=== PATIENT | female | born 1990 ===

== ENCOUNTER 2017-01-21 19:11 | Emergency (ER) | payer OTHER ==
[2017-01-21 19:20] VITALS: BP 146/92; PULSE 81; RESP 18; TEMP 98.4; O2SAT 100
--- NOTE | 2017-01-21 20:17 | ED PDOC ---
Lower Extremity Pain/Injury Time Seen by Provider: 01/21/17 19:56 Chief Complaint (Nursing): Lower Extremity Problem/Injury Chief Complaint (Provider): Left calf pain History Per: Patient History/Exam Limitations: no limitations Onset/Duration Of Symptoms: Days (x 2) Current Symptoms Are (Timing): Still Present Additional Complaint(s): Melly is a 26 y/o female who was sent by PMD to the ED for evaluation of left calf pain, onset 2 days ago. She denies any associated chest pain or shortness of breath. Patient also denies any recent travel or long car/plane ride, stating that she was home resting all weekend. No medications were taken for pain relief. She reports she was recently diagnosed with tonsillitis and is currently taking a course of Amoxicillin. Patient states she takes control pills daily. She denies being a smoker. PMD: Dr. Greg Castellanos Past Medical History Reviewed: Historical Data, Nursing Documentation, Vital Signs Vital Signs: Last Vital Signs Temp 98.4 F 01/21/17 19:17 Pulse 81 01/21/17 19:17 Resp 18 01/21/17 19:17 BP 146/92 H 01/21/17 19:17 Pulse Ox 100 01/21/17 19:17 - Medical History PMH: No Chronic Diseases - Surgical History Other surgeries: right hip surgery - Family History Family History: States: CAD, Hypertension - Living Arrangements Living Arrangements: With Family - Social History Current smoker - smoking cessation education provided: No Alcohol: None Drugs: Denies - Allergies Allergies/Adverse Reactions: Allergies Allergy/AdvReac Type Severity Reaction Status Date / Time Sulfa (Sulfonamide Allergy RASH Verified 01/21/17 19:17 Antibiotics) Wells Criteria for PE - Wells Criteria for Pulmonary Embolism Clinical Signs and Symptoms of DVT: Yes P.E is #1 Diagnosis, or Equally Likely: No Heart Rate >100: No Immobilization at least 3 days;Surgery previous 4 weeks: No Previous, objectively diagnosed PE or DVT: No Hemoptysis: No Malignancy w/treatment within 6 months, or palliative: No Total Score: 3 Review of Systems ROS Statement: Except As Marked, All Systems Reviewed And Found Negative Constitutional: Negative for: Fever Cardiovascular: Negative for: Chest Pain Respiratory: Negative for: Shortness of Breath, SOB with Exertion Musculoskeletal: Positive for: Leg Pain (Left calf pain, x 2 days, denies any trauma or injury) Physical Exam - Reviewed Nursing Documentation Reviewed: Yes Vital Signs Reviewed: Yes - Physical Exam Appears: Positive for: Well, Non-toxic, No Acute Distress Head Exam: Positive for: ATRAUMATIC, NORMAL INSPECTION, NORMOCEPHALIC Skin: Positive for: Normal Color. Negative for: Rash Eye Exam: Positive for: Normal appearance Cardiovascular/Chest: Positive for: Regular Rate, Rhythm Respiratory: Positive for: Normal Breath Sounds. Negative for: Accessory Muscle Use, Wheezing, Respiratory Distress Extremity: Positive for: Normal ROM, Calf Tenderness (Mild swelling and slight tenderness to left calf with no ecchymosis). Negative for: Pedal Edema, Deformity Neurologic/Psych: Positive for: Alert, Oriented, Gait (steady) - Laboratory Results Urine POC: Negative - ECG O2 Sat by Pulse Oximetry: 100 (RA) Pulse Ox Interpretation: Normal - Other Rad Doppler left leg X-Ray: Read By Radiologist X-Ray Interpretation: see below Medical Decision Making Medical Decision Makin26 year old female with left calf pain Time: 20:12 Plan: --Urine --Motrin 600 mg PO --Ordered US Duplex to r/o DVT Time: 21:18 US Duplex Lower Extremity: FINDINGS: Deep veins: Normal color and spectral Doppler flow. Normal compressibility. No deep vein thrombosis from common femoral to popliteal vein. Superficial veins: No thrombosis. Soft tissues: No popliteal cyst. IMPRESSION: 1. No evidence of DVT within LEFT lower extremity. Patient is aware of ultrasound results, all questions answered. Advised NSAID's for pain as needed and follow up with PMD. Scribe Attestation: Documented by Shahrzad Churchill, acting as a scribe for Perla Copeland PA-C Provider Scribe Attestation: All medical record entries made by the Scribe were at my direction and personally dictated by me. I have reviewed the chart and agree that the record accurately reflects my personal performance of the history, physical exam, medical decision making, and the department course for this patient. I have also personally directed, reviewed, and agree with the discharge instructions and disposition. Disposition - Clinical Impression Clinical Impression: Calf pain - Patient ED Disposition Is Patient to be Admitted: No Counseled Patient/Family Regarding: Studies Performed, Diagnosis, Need For Followup - Disposition Referrals: Greg Flores MD [Staff Provider] - Disposition: Routine/Home Disposition Time: 21:39 Condition: STABLE Additional Instructions: Ice and rest affected area. Advil for pain as needed. Follow up with primary care doctor in 2-3 days. Instructions: Leg Pain (ED) Forms: [employer] ([place])
--- NOTE | 2017-01-21 21:18 | US ---
EXAM: US Duplex Left Lower Extremity Veins CLINICAL HISTORY: 26 years old, female; Pain; Leg, lower; Left; Additional info: Calf pain and swelling TECHNIQUE: Real-time ultrasound scan of the veins of the left lower extremity with color Doppler flow, spectral waveform analysis and compression. COMPARISON: No relevant prior studies available. FINDINGS: Deep veins: Normal color and spectral Doppler flow. Normal compressibility. No deep vein thrombosis from common femoral to popliteal vein. Superficial veins: No thrombosis. Soft tissues: No popliteal cyst. IMPRESSION: 1. No evidence of DVT within LEFT lower extremity.
== END 2017-01-21 23:10 | disposition home or self-care (01) ==
LOC: H.ER 19:11
DX: M79.662 Pain in left lower leg (principal)